=== PATIENT | male | born 1960 | race Two or more races ===

== ENCOUNTER → 2021-03-08 | Emergency (ER) | payer OTHER ==
[~2021-03-08] VITALS: Ht 177.8 cm; Wt 90.7 kg
[~2021-03-08] MED LIST: ACETAMINOPHEN650 M2 PO; IRON325 MG PO; NORFLEX100MG PO
== END | disposition home or self-care (01) ==
LOC: ER 19:25
DX: R07.89 Other chest pain (principal); R06.02 Shortness of breath; D64.89 Other specified anemias; Z03.818 Encounter for observation for suspected exposure to other biological agents ruled out